=== PATIENT | female | born 1960 | race Caucasian/White ===

== ENCOUNTER → 2017-05-19 | Outpatient (CLI) | payer BC ==
[2012-04-24 12:35] VITALS: BP 123/63
[2017-05-19 11:08] LABS: BASOPHILS % (AUTO) 0.3 % (0.2-1.0); EOSINOPHILS # (AUTO) 0.1 x10^3/uL (0.0-0.2); EOSINOPHILS % (AUTO) 2.9 % (0.9-2.9); HEMATOCRIT 33.7 % (36.0-47.0); HEMOGLOBIN 11.5 g/dL (12.0-16.0); LYMPHOCYTES # (AUTO) 1.6 X10^3/uL (1.3-2.9); LYMPHOCYTES % (AUTO) 39.1 % (21.0-51.0); MEAN CORPUSCULAR HEMOGLOBIN 27.1 pg (27.0-34.0); MEAN CORPUSCULAR HGB CONC 34.1 g/dL (33.0-35.0); MEAN CORPUSCULAR VOLUME 79.6 fL (80.0-100.0); MEAN PLATELET VOLUME 7.9 fL (7.4-11.0); MONOCYTES # (AUTO) 0.5 x10^3/uL (0.3-0.8); MONOCYTES % (AUTO) 11.2 % (0.0-13.0); NEUTROPHILS % (AUTO) 46.5 % (42.0-75.0); PLATELET COUNT 164 X10^3/uL (150.0-450.0); RED BLOOD COUNT 4.24 X10^6/uL (3.5-5.4); RED CELL DISTRIBUTION WIDTH 13.9 % (11.6-16.5); WHITE BLOOD COUNT 4.2 X10^3/uL (3.6-10.0)
[2017-05-19 11:16] LABS: BLOOD UREA NITROGEN 12 mg/dL (7-18); CALCIUM 8.9 mg/dL (8.5-10.1); CARBON DIOXIDE 32.1 mmol/L (21-32); CHLORIDE 101 mmol/L (98-107); COR NA(FOR HYPERGLY) 142 mmol/L (136-145); CREATININE 0.73 mg/dL (0.55-1.02); SODIUM 141 mmol/L (136-145); eGFR BLACK RACES > 60 (>60); eGFR NON BLACK RACES > 60 (>60)
[2017-05-19 11:29] LABS: B-TYPE NATRIURETIC PEPTIDE 20.2 pg/mL (0-79)
[2017-05-19 11:56] LABS: MYCOPLASMA PNEUMONIAE IGM AB NEGATIVE (NEGATIVE)
== END ==
LOC: LAB 10:30
PROVIDERS: ATTEND Psychiatry & Neurology Neurology
DX: R05 Cough (principal); R06.02 Shortness of breath
CPT/HCPCS: 36415; 80048; 83880; 85025; 86738; 87070; 87205

== ENCOUNTER 2017-06-15 11:58 | Observation (INO) | payer BC ==
[2017-06-15 12:06] LABS: BASOPHILS % (AUTO) 0.5 % (0.2-1.0); EOSINOPHILS # (AUTO) 0.1 x10^3/uL (0.0-0.2); EOSINOPHILS % (AUTO) 2.2 % (0.9-2.9); HEMATOCRIT 31.3 % (36.0-47.0); HEMOGLOBIN 10.8 g/dL (12.0-16.0); LYMPHOCYTES # (AUTO) 1.7 X10^3/uL (1.3-2.9); LYMPHOCYTES % (AUTO) 38.1 % (21.0-51.0); MEAN CORPUSCULAR HEMOGLOBIN 27.5 pg (27.0-34.0); MEAN CORPUSCULAR HGB CONC 34.4 g/dL (33.0-35.0); MEAN CORPUSCULAR VOLUME 79.9 fL (80.0-100.0); MONOCYTES # (AUTO) 0.3 x10^3/uL (0.3-0.8); MONOCYTES % (AUTO) 6.8 % (0.0-13.0); NEUTROPHILS # (AUTO) 2.3 x10^3/uL (2.2-4.8); NEUTROPHILS % (AUTO) 52.4 % (42.0-75.0); PLATELET COUNT 151 X10^3/uL (150.0-450.0); RED BLOOD COUNT 3.91 X10^6/uL (3.5-5.4); RED CELL DISTRIBUTION WIDTH 14.1 % (11.6-16.5); WHITE BLOOD COUNT 4.4 X10^3/uL (3.6-10.0)
--- NOTE | 2017-06-15 12:12 | DR.GENAD ---
HPI - PCP Primary Care Physician: NLD - Complaint/Symptoms Chief Complaint Doctors Comments: Patient presented to the ED s/p feeling weak while at work today. She states that has been following BP with periodic adjustment between [facility] and [facility]. She has an extensive cardiac history with 29 stents and a carotid endarectomy left side. She states that she became diaphoretic but no chest pain or pressure. She was evaluated in the work place and lab submitted, she was evaluated by the erick prior to coming to the ED. She is alert in no distress. PMH - PMH Past Medical History: Angina, [place], Coronary Artery Disease, Hypertension Past Surgical History: Yes Surgical History: Angioplasty/Stents, , CABG/Valve Surgery - Family History Family Medical History: Diabetes Mellitus, Cancer, [place], Coronary Artery Disease, Sudden Cardiac , Hypertension - Social History Do you use any recreational Drugs:: No ROS - Review of Systems Eyes: No Symptoms Reported ENTM: No Symptoms Reported Respiratoy: No Symptoms Reported Cardiovascular: No Symptoms Reported Gastrointestinal/Abdominal: No Symptoms Reported Genitourinary: No Symptoms Reported Neurological: No Symptoms Reported Musculoskeletal: No Symptoms Reported Integumentary: No Symptoms Reported Hematologic/Lymphatic: No Symptoms Reported Endocrine: No Symptoms Reported Psychiatric: No Symptoms Reported PE - Vital Signs Vitals: Temperature 97.2 F Pulse Rate [Apical] 84 Pulse Rate 73 Respiratory Rate 20 Blood Pressure [Left Arm] 160/80 Blood Pressure 178/90 O2 Sat by Pulse Oximetry 100 - General Limitations: No Limitations General Appearance: Alert, In No Apparent Distress - Head Head Exam: Normal Inspection, Atraumatic - Eyes Eye exam: Normal Appearance, PERRL - ENT ENT Exam: Normal Exam External Ear Exam: Normal External Inspection TM/Canal Exam: Bilateral Normal Nose Exam: Normal Nose Exam Mouth Exam: Normal Inspection Throat Exam: Normal Inspection - Neck Neck Exam: Normal Inspection - Chest Chest Inspection: Normal Inspection - Respiratory Respiratory Exam: Normal Lung Sounds Bilat Respiratory Exam: Bilateral Clear to Auscultation - Cardiovascular Cardiovascular Exam: Regular Rate, Normal Rhythm - Abdominal Exam Abdominal Exam: Normal Inspection, Normal Bowel Sounds Abdominal Tenderness: negative: RUQ, RLQ, LUQ, LLQ, Epigastrium, Suprapubic, Diffuse, Mild, Moderate, Severe, Other - Extremities Extremities Exam: Normal Inspection, Full ROM - Back Back Exam: Normal Inspection, Full ROM - Neurologic Neurological Exam: Alert, Oriented X3, CN II-XII Intact - Psychiatric Psychiatric Exam: Normal Affect, Normal Mood - Skin Skin Exam: Warm, Dry, Intact Course - Reevaluation 1st: Improved - Consultation Called: 13:30 (1400 Dr Tatum agreed to admit for observation) ROR - Labs Reviewed Result Diagrams: 06/15/17 11:35 06/15/17 11:35 Laboratory: WBC 4.4 X10^3/uL (3.6-10.0) 06/15/17 11:35 RBC 3.91 X10^6/uL (3.5-5.4) 06/15/17 11:35 Hgb 10.8 g/dL (12.0-16.0) L 06/15/17 11:35 Hct 31.3 % (36.0-47.0) L 06/15/17 11:35 MCV 79.9 fL (80.0-100.0) L 06/15/17 11:35 MCH 27.5 pg (27.0-34.0) 06/15/17 11:35 MCHC 34.4 g/dL (33.0-35.0) 06/15/17 11:35 RDW 14.1 % (11.6-16.5) 06/15/17 11:35 Plt Count 151 X10^3/uL (150.0-450.0) 06/15/17 11:35 MPV 8.0 fL (7.4-11.0) 06/15/17 11:35 Neut % (Auto) 52.4 % (42.0-75.0) 06/15/17 11:35 Lymph % (Auto) 38.1 % (21.0-51.0) 06/15/17 11:35 [place] % (Auto) 6.8 % (0.0-13.0) 06/15/17 11:35 Eos % (Auto) 2.2 % (0.9-2.9) 06/15/17 11:35 Baso % (Auto) 0.5 % (0.2-1.0) 06/15/17 11:35 Neut # (Auto) 2.3 x10^3/uL (2.2-4.8) 06/15/17 11:35 Lymph # (Auto) 1.7 X10^3/uL (1.3-2.9) 06/15/17 11:35 [place] # (Auto) 0.3 x10^3/uL (0.3-0.8) 06/15/17 11:35 Eos # (Auto) 0.1 x10^3/uL (0.0-0.2) 06/15/17 11:35 Baso # (Auto) 0.0 X10^3/uL (0.0-0.1) 06/15/17 11:35 Absolute Nucleated RBC 0.0 /100WBC 06/15/17 11:35 Sodium 139 mmol/L (136-145) 06/15/17 11:35 Corrected Sodium 144 mmol/L (136-145) 06/15/17 11:35 Potassium 4.3 mmol/L (3.5-5.1) 06/15/17 11:35 Chloride 102 mmol/L (98-107) 06/15/17 11:35 Carbon Dioxide 26.8 mmol/L (21-32) 06/15/17 11:35 BUN 20 mg/dL (7-18) H 06/15/17 11:35 Creatinine 0.82 mg/dL (0.55-1.02) 06/15/17 11:35 Est GFR (MDRD) Af Amer > 60 (>60) 06/15/17 11:35 Est GFR (MDRD) Non-Af > 60 (>60) 06/15/17 11:35 Glucose 306 mg/dL (65-99) H 06/15/17 11:35 Calcium 8.1 mg/dL (8.5-10.1) L 06/15/17 11:35 Corrected Calcium 8.7 mg/dL (8.5-10.1) 06/15/17 11:35 Total Bilirubin 0.30 mg/dL (0.2-1.0) 06/15/17 11:35 AST 12 Units/L (15-37) L 06/15/17 11:35 ALT 22 Units/L (12-78) 06/15/17 11:35 Alkaline Phosphatase 78 Units/L (46-116) 06/15/17 11:35 Creatine Kinase 58 Units/L (26-192) 06/15/17 11:35 CK-MB (CK-2) < 1.0 ng/mL (0-4.0) 06/15/17 11:35 CK/CKMB % Calc 1.7 % (<4) 06/15/17 11:35 Troponin I < 0.02 ng/mL (0-1.5) 06/15/17 11:35 Total Protein 6.8 g/dL (6.4-8.2) 06/15/17 11:35 Albumin 3.3 g/dL (3.4-5.0) L 06/15/17 11:35 Globulin 3.5 g/dL (2.5-4.5) 06/15/17 11:35 Albumin/Globulin Ratio 0.9 Ratio (1.1-2.1) L 06/15/17 11:35 - Diagnosis Discharge Problem: Near syncope - Discharge Plan Condition: Stable - Follow ups/Referrals Follow ups/Referrals: NFD,None [Primary Care Provider] - 3 days - Instructions
[2017-06-15 12:27] LABS: BLOOD UREA NITROGEN 20 mg/dL (7-18); CALCIUM 8.1 mg/dL (8.5-10.1); CARBON DIOXIDE 26.8 mmol/L (21-32); CHLORIDE 102 mmol/L (98-107); COR NA(FOR HYPERGLY) 144 mmol/L (136-145); CREATININE 0.82 mg/dL (0.55-1.02); SODIUM 139 mmol/L (136-145); TROPONIN I < 0.02 ng/mL (0-1.5); eGFR BLACK RACES > 60 (>60); eGFR NON BLACK RACES > 60 (>60)
[2017-06-15 12:35] LABS: ALANINE AMINOTRANSFERASE 22 Units/L (12-78); ALBUMIN 3.3 g/dL (3.4-5.0); ALKALINE PHOSPHATASE 78 Units/L (46-116); ASPARTATE AMINO TRANSFERASE 12 Units/L (15-37); CKMB % 1.7 % (<4); COR CA(FOR HYPOALB) 8.7 mg/dL (8.5-10.1); CREATINE KINASE 58 Units/L (26-192); CREATINE KINASE MB < 1.0 ng/mL (0-4.0); TOTAL PROTEIN 6.8 g/dL (6.4-8.2)
--- NOTE | 2017-06-15 14:15 | RAD ---
Exam: Portable chest 06/15/2017 at 1:55 p.m. History: 56-year-old female with weakness. Comparison: Previous chest radiograph from 03/01/2015. Findings: Borderline cardiomegaly is seen. No significant vascular congestion however. Lungs are clear with no infiltrate or significant effusion on either side. Impression: Borderline cardiomegaly. However no acute superimposed abnormality is seen on this exam. Reported By:
[2017-06-15] MEDS ORDERED: NITROSTAT SL PRN (16:46)
[2017-06-15 18:09] LABS: CREATINE KINASE 50 Units/L (26-192); CREATINE KINASE MB < 1.0 ng/mL (0-4.0); TROPONIN I < 0.02 ng/mL (0-1.5)
[2017-06-15] MEDS ORDERED: LIPITOR TAB 40 MG PO SCH (21:00)
[2017-06-15] MEDS ORDERED: PATIENT'S HOME MEDICATION (Atorvastatin Calcium [Lipitor] 80 MG) PO SCH (21:00)
[2017-06-15] MEDS: LEVEMIR SC SCH (21:45)
[2017-06-15] MEDS: COZAAR PO SCH (21:45)
[2017-06-15] MEDS: LOPRESSOR TAB 25 MG PO SCH (21:46)
[2017-06-15] MEDS: PLETAL PO SCH (21:46)
[2017-06-15] MEDS: RANEXA PO SCH (21:47)
[2017-06-16 00:30] LABS: CKMB % 2.4 % (<4); CREATINE KINASE 42 Units/L (26-192); CREATINE KINASE MB < 1.0 ng/mL (0-4.0); TROPONIN I < 0.02 ng/mL (0-1.5)
[2017-06-16 07:07] LABS: BASOPHILS % (AUTO) 0.7 % (0.2-1.0); EOSINOPHILS # (AUTO) 0.1 x10^3/uL (0.0-0.2); EOSINOPHILS % (AUTO) 2.5 % (0.9-2.9); HEMATOCRIT 31.3 % (36.0-47.0); HEMOGLOBIN 10.7 g/dL (12.0-16.0); LYMPHOCYTES # (AUTO) 1.9 X10^3/uL (1.3-2.9); LYMPHOCYTES % (AUTO) 35.3 % (21.0-51.0); MEAN CORPUSCULAR HEMOGLOBIN 27.4 pg (27.0-34.0); MEAN CORPUSCULAR HGB CONC 34.3 g/dL (33.0-35.0); MEAN CORPUSCULAR VOLUME 79.8 fL (80.0-100.0); MEAN PLATELET VOLUME 8.1 fL (7.4-11.0); MONOCYTES # (AUTO) 0.4 x10^3/uL (0.3-0.8); NEUTROPHILS # (AUTO) 2.8 x10^3/uL (2.2-4.8); NEUTROPHILS % (AUTO) 53.5 % (42.0-75.0); PLATELET COUNT 138 X10^3/uL (150.0-450.0); RED BLOOD COUNT 3.92 X10^6/uL (3.5-5.4); RED CELL DISTRIBUTION WIDTH 14.1 % (11.6-16.5); WHITE BLOOD COUNT 5.3 X10^3/uL (3.6-10.0)
[2017-06-16 07:10] VITALS: BMI 29.8
[2017-06-16 07:18] LABS: ALANINE AMINOTRANSFERASE 19 Units/L (12-78); ALBUMIN 3.1 g/dL (3.4-5.0); ALKALINE PHOSPHATASE 69 Units/L (46-116); ASPARTATE AMINO TRANSFERASE 8 Units/L (15-37); BLOOD UREA NITROGEN 19 mg/dL (7-18); CALCIUM 8.1 mg/dL (8.5-10.1); CHLORIDE 102 mmol/L (98-107); CHOL/HDL RATIO 4.1 (0.0-5.0); CHOLESTEROL 192 mg/dL (0-200); COR CA(FOR HYPOALB) 8.8 mg/dL (8.5-10.1); COR NA(FOR HYPERGLY) 142 mmol/L (136-145); CREATININE 0.75 mg/dL (0.55-1.02); HDL CHOLESTEROL 47 mg/dL (40-60); SODIUM 140 mmol/L (136-145); TOTAL PROTEIN 6.5 g/dL (6.4-8.2); TRIGLYCERIDES 199 mg/dL (0-150); eGFR BLACK RACES > 60 (>60); eGFR NON BLACK RACES > 60 (>60)
[2017-06-16 07:34] VITALS: BP 175/94
[2017-06-16] MEDS ORDERED: PATIENT'S HOME MEDICATION (Aspirin 81 MG) PO SCH (09:00)
[2017-06-16] MEDS ORDERED: ASPIRIN 81 MG CHEWTAB PO SCH (09:00)
[2017-06-16] MEDS ORDERED: PLAVIX PO SCH (09:00)
[2017-06-16] MEDS ORDERED: PATIENT'S HOME MEDICATION (Clopidogrel Bisulfate [Plavix] 75 MG) PO SCH (09:00)
[2017-06-16] MEDS: PLETAL PO SCH (09:36)
[2017-06-16] MEDS: RANEXA PO SCH (09:36)
[2017-06-16] MEDS: COZAAR PO SCH (09:36)
[2017-06-16] MEDS: LEVEMIR SC SCH (09:37)
[2017-06-16] MEDS: LOPRESSOR TAB 25 MG PO SCH (09:37)
== END 2017-06-16 11:05 | disposition home or self-care (01) ==
LOC: ER 12:02 → OBS 14:18
PROVIDERS: ADMIT Internal Medicine; ATTEND Internal Medicine
DX: R55 Syncope and collapse (principal); R07.89 Other chest pain; I51.7 Cardiomegaly; I25.10 Atherosclerotic heart disease of native coronary artery without angina pectoris; R93.1 Abnormal findings on diagnostic imaging of heart and coronary circulation; D64.89 Other specified anemias; R73.09 Other abnormal glucose; R11.0 Nausea; Z95.5 Presence of coronary angioplasty implant and graft
CPT/HCPCS: 36415; 71045; 80053; 80061; 82550; 82553; 84484; 85025; 93005; 93010; 94760; 96365; 99283; 99284; A4216; 1956; G0378

== ENCOUNTER 2020-05-14 15:18 | Observation (INO) ==
[2020-05-14] MEDS ORDERED: ZOFRAN INJ 4 MG VIAL IVP PRN (16:47)
[2020-05-14] MEDS ORDERED: NS 1000 ML 1,000 ML ONE (17:20)
[2020-05-14] MEDS: NS 1000 ML 1,000 ML IV SCH (17:41)
[2020-05-14] MEDS ORDERED: HumuLIN R SC PRN (18:04)
[2020-05-14] MEDS ORDERED: MORPHINE SULFATE INJ 2 MG INJ IVP PRN (18:10)
[2020-05-14 18:53] LABS: LACTIC ACID 0.7 mmol/L (0.4-2.0)
[2020-05-14 19:40] VITALS: BMI 27.4
[2020-05-14] MEDS ORDERED: LOPRESSOR TAB 25 MG ONE (21:10)
[2020-05-14] MEDS: COZAAR PO SCH (21:43)
[2020-05-14] MEDS: LOPRESSOR TAB 25 MG PO SCH (21:43)
[2020-05-14] MEDS: RANEXA PO SCH (21:43)
[2020-05-14] MEDS: PLETAL PO SCH (21:44)
[2020-05-14 22:03] LABS: BILIRUBIN,URINE NEGATIVE (NEGATIVE); BLOOD/HEMOGLOBIN,URINE NEGATIVE (NEGATIVE); GLUCOSE, URINE 1+ (NEGATIVE); KETONES,URINE NEGATIVE (NEGATIVE); LEUKOCYTE ESTERASE ,URINE 1+ (NEGATIVE); NITRITES,URINE NEGATIVE (NEGATIVE); PROTEIN,URINE 1+ (NEGATIVE); UROBILINOGEN,URINE NORMAL (NORMAL)
[2020-05-14 22:18] LABS: APPEARANCE,URINE CLEAR (CLEAR); BACTERIA,URINE TRACE /HPF (NEGATIVE); COLOR,URINE YELLOW (YELLOW); MUCUS,URINE MODERATE /HPF (NEGATIVE); RBC,URINE NONE SEEN /HPF (0-3); SQUAMOUS EPITHELIAL CELL,UR FEW /HPF (NEGATIVE)
[2020-05-15] MEDS ORDERED: NS 1000 ML 1,000 ML ONE ×2 (01:04→08:56)
[2020-05-15] MEDS: NS 1000 ML 1,000 ML IV SCH ×3 (01:50→18:15)
[2020-05-15 05:08] LABS: BASOPHILS % (AUTO) 0.5 % (0.2-1.0); EOSINOPHILS # (AUTO) 0.1 x10^3/uL (0.0-0.2); EOSINOPHILS % (AUTO) 1.4 % (0.9-2.9); HEMATOCRIT 29.5 % (36.0-47.0); HEMOGLOBIN 9.8 g/dL (12.0-16.0); LYMPHOCYTES # (AUTO) 1.9 X10^3/uL (1.3-2.9); LYMPHOCYTES % (AUTO) 35.2 % (21.0-51.0); MEAN CORPUSCULAR HEMOGLOBIN 27.9 pg (27.0-34.0); MEAN CORPUSCULAR HGB CONC 33.2 g/dL (33.0-35.0); MEAN CORPUSCULAR VOLUME 84.1 fL (80.0-100.0); MEAN PLATELET VOLUME 7.1 fL (7.4-11.0); MONOCYTES # (AUTO) 0.5 x10^3/uL (0.3-0.8); MONOCYTES % (AUTO) 9.7 % (0.0-13.0); NEUTROPHILS # (AUTO) 2.9 x10^3/uL (2.2-4.8); NEUTROPHILS % (AUTO) 53.2 % (42.0-75.0); PLATELET COUNT 177 X10^3/uL (150.0-450.0); RED BLOOD COUNT 3.51 X10^6/uL (3.5-5.4); RED CELL DISTRIBUTION WIDTH 12.5 % (11.6-16.5); WHITE BLOOD COUNT 5.4 X10^3/uL (3.6-10.0)
[2020-05-15 05:21] LABS: ALANINE AMINOTRANSFERASE 10 Units/L (12-78); ALBUMIN 2.7 g/dL (3.4-5.0); ALKALINE PHOSPHATASE 49 Units/L (46-116); ASPARTATE AMINO TRANSFERASE 9 Units/L (15-37); BLOOD UREA NITROGEN 16 mg/dL (7-18); CALCIUM 8.5 mg/dL (8.5-10.1); CARBON DIOXIDE 30.2 mmol/L (21-32); CHLORIDE 106 mmol/L (98-107); COR CA(FOR HYPOALB) 9.5 mg/dL (8.5-10.1); COR NA(FOR HYPERGLY) 145 mmol/L (136-145); CREATININE 0.98 mg/dL (0.55-1.02); SODIUM 144 mmol/L (136-145); eGFR NON BLACK RACES > 60 (>60)
[2020-05-15] MEDS ORDERED: ASPIRIN 81 MG CHEWTAB ONE (08:30)
[2020-05-15] MEDS ORDERED: LEVAQUIN TAB 250 MG ONE (08:31)
[2020-05-15] MEDS ORDERED: PLAVIX ONE (08:31)
[2020-05-15] MEDS ORDERED: LOPRESSOR TAB 25 MG ONE (08:31)
[2020-05-15] MEDS ORDERED: LEVAQUIN TAB 500 MG ONE (08:32)
[2020-05-15 08:43] LABS: AMYLASE 35 Units/L (25-115); LIPASE 278 Units/L (73-393)
[2020-05-15] MEDS: PLAVIX PO SCH (08:45)
[2020-05-15] MEDS: LEVAQUIN TAB 750 MG PO SCH (08:46)
[2020-05-15] MEDS: ASPIRIN EC 81 MG PO SCH (08:46)
[2020-05-15] MEDS: LOPRESSOR TAB 25 MG PO SCH ×2 (08:47→21:10)
[2020-05-15] MEDS: HYDROCHLOROTHIAZIDE 25 MG TAB PO SCH (08:48)
[2020-05-15] MEDS: COZAAR PO SCH ×3 (08:48→21:10)
[2020-05-15] MEDS: PLETAL PO SCH ×2 (08:49→21:12)
[2020-05-15] MEDS: RANEXA PO SCH ×2 (08:49→21:13)
--- NOTE | 2020-05-15 08:51 | DR.H&P ---
H&P History & Physical for Day of: H&P Date: 05/14/20 Chief Complaint Chief Complaint: Nausea/Vomiting Abdominal pain Allergies Allergies Allergy/AdvReac Type Severity Reaction Status Date / Time No Known Drug Allergies Allergy Verified 06/15/17 15:20 History of Present Illness History of Present Illness: Pt is a 59 year old female past medical history CABG, HTN, DMT2, presenting with abdominal pain, nausea and vomiting that has been getting worse for the past 4-5 days. She reports decreased appetite and food intake due to persistent vomiting. She has been laying in bed unable to lift her head due to nausea. She is currently on Levofloxacin for UTI. On exam she does have epigastric and RUQ tenderness. Labs/imaging: Wbc 6, Hgb 11.7, Plt 265, Na 141, K 3.6, Cr 1.0, Glucose 127, AST 8, ALT 11, ALKP 61, LA 0.7, CRP 23, Troponin negative, EKG NSR, Lipase 259, UA 1+ leuks, wbc 3-5, trace bacteria, nitrite negative, COVID negative, CEA pending, KUB:1. [No acute cardiopulmonary disease.] Postsurgical chest status post sternotomy CABG surgery in coronary st ent placements 2. [No evidence for acute abdominal pathology identified. Will start patient on IVF, keep NPO excepts medications, IV zofran for nausea, continue levofloxacin course for UTI. Restart home medications. Pt w/ continued abdominal pain, will get CTAP for evaluation and U/S gallbladder. Continue to monitor and follow up labs/imaging in the morning. Past Medical History Past Medical History: Angina, Coronary Artery Disease, Diabetes, Hypertension and [place] Past Surgical History Surgical History: Angioplasty/Stents, CABG/Valve Surgery and [employer] Surgery Family History Family Medical History: Cancer, [place] and Coronary Artery Disease Social History Does patient currently use any type of tobacco product: No Have you used tobacco products in the last 12 months: No Type of Tobacco Use: None Does any household member use tobacco: No Alcohol Use: None Drug Use: None Medications Home Medications: No Known Drug Allergies Allergy (Verified 06/15/17 15:20) CONTINUE taking the following medications hydrochlorothiazide 25 mg PO DAILY 05/14/20 [History] levofloxacin 750 mg PO DAILY 05/14/20 [History] Labs Result Diagrams: 05/15/20 04:40 05/15/20 04:40 Labs: Laboratory WBC 5.4 X10^3/uL (3.6-10.0) 05/15/20 04:40 RBC 3.51 X10^6/uL (3.5-5.4) 05/15/20 04:40 Hgb 9.8 g/dL (12.0-16.0) L 05/15/20 04:40 Hct 29.5 % (36.0-47.0) L 05/15/20 04:40 MCV 84.1 fL (80.0-100.0) 05/15/20 04:40 MCH 27.9 pg (27.0-34.0) 05/15/20 04:40 MCHC 33.2 g/dL (33.0-35.0) 05/15/20 04:40 RDW 12.5 % (11.6-16.5) 05/15/20 04:40 Plt Count 177 X10^3/uL (150.0-450.0) 05/15/20 04:40 MPV 7.1 fL (7.4-11.0) L 05/15/20 04:40 Neut % (Auto) 53.2 % (42.0-75.0) 05/15/20 04:40 Lymph % (Auto) 35.2 % (21.0-51.0) 05/15/20 04:40 [place] % (Auto) 9.7 % (0.0-13.0) 05/15/20 04:40 Eos % (Auto) 1.4 % (0.9-2.9) 05/15/20 04:40 Baso % (Auto) 0.5 % (0.2-1.0) 05/15/20 04:40 Neut # (Auto) 2.9 x10^3/uL (2.2-4.8) 05/15/20 04:40 Lymph # (Auto) 1.9 X10^3/uL (1.3-2.9) 05/15/20 04:40 [place] # (Auto) 0.5 x10^3/uL (0.3-0.8) 05/15/20 04:40 Eos # (Auto) 0.1 x10^3/uL (0.0-0.2) 05/15/20 04:40 Baso # (Auto) 0.0 X10^3/uL (0.0-0.1) 05/15/20 04:40 Absolute Nucleated RBC 0.0 /100WBC 05/15/20 04:40 Sodium 144 mmol/L (136-145) 05/15/20 04:40 Corrected Sodium 145 mmol/L (136-145) 05/15/20 04:40 Potassium 3.5 mmol/L (3.5-5.1) 05/15/20 04:40 Chloride 106 mmol/L (98-107) 05/15/20 04:40 Carbon Dioxide 30.2 mmol/L (21-32) 05/15/20 04:40 BUN 16 mg/dL (7-18) 05/15/20 04:40 Creatinine 0.98 mg/dL (0.55-1.02) 05/15/20 04:40 Est GFR (MDRD) Af Amer > 60 (>60) 05/15/20 04:40 Est GFR (MDRD) Non-Af > 60 (>60) 05/15/20 04:40 Glucose 121 mg/dL (65-99) H 05/15/20 04:40 POC Glucose (mg/dL) 111 mg/dL (65-99) H 05/15/20 05:39 Lactic Acid 0.7 mmol/L (0.4-2.0) 05/14/20 18:10 Calcium 8.5 mg/dL (8.5-10.1) 05/15/20 04:40 Corrected Calcium 9.5 mg/dL (8.5-10.1) 05/15/20 04:40 Total Bilirubin 0.20 mg/dL (0.2-1.0) 05/15/20 04:40 AST 9 Units/L (15-37) L 05/15/20 04:40 ALT 10 Units/L (12-78) L 05/15/20 04:40 Alkaline Phosphatase 49 Units/L (46-116) 05/15/20 04:40 Troponin I < 0.02 ng/mL (0-1.5) 05/14/20 18:10 C-Reactive Protein 23.40 mg/L (0-3.0) H 05/14/20 18:10 Total Protein 6.0 g/dL (6.4-8.2) L 05/15/20 04:40 Albumin 2.7 g/dL (3.4-5.0) L 05/15/20 04:40 Globulin 3.3 g/dL (2.5-4.5) 05/15/20 04:40 Albumin/Globulin Ratio 0.8 Ratio (1.1-2.1) L 05/15/20 04:40 Amylase 35 Units/L (25-115) 05/15/20 04:40 Lipase 278 Units/L (73-393) 05/15/20 04:40 Specimen Type Clean catch urine 05/14/20 21:30 Urine Color Yellow (YELLOW) 05/14/20 21: Urine Appearance Clear (CLEAR) 05/14/20 21: Urine pH 6.0 (5.0 - 8.0) 05/14/20 21:30 Ur Specific [place] 1.020 (1.000-1.030) 05/14/20 21:30 Urine Protein 1+ (NEGATIVE) 05/14/20 21: Urine Glucose (UA) 1+ (NEGATIVE) 05/14/20 21: Urine Ketones Negative (NEGATIVE) 05/14/20 21: Urine Occult Blood Negative (NEGATIVE) 05/14/20 21: Urine Nitrite Negative (NEGATIVE) 05/14/20 21: Urine Bilirubin Negative (NEGATIVE) 05/14/20 21: Urine Urobilinogen Normal (NORMAL) 05/14/20 21:30 Ur Leukocyte Esterase 1+ (NEGATIVE) 05/14/20 21:30 Urine RBC None seen /HPF (0-3) 05/14/20 21:30 Urine WBC 3-5 /HPF (0-5) 05/14/20 21:30 Ur Squamous Epith Cells Few /HPF (NEGATIVE) 05/14/20 21:30 Urine Bacteria Trace /HPF (NEGATIVE) 05/14/20 21: Urine Mucus Moderate /HPF (NEGATIVE) 05/14/20 21:30 Ur Culture Indicated? No/not indicated 05/14/20 21:30 Review of Systems Constitutional: Weakness Eyes: No Symptoms Reported ENT: No Symptoms Reported Respiratory: No Symptoms Reported Cardiovascular: No Symptoms Reported Gastrointestinal: Nausea, Vomiting, Abdominal Pain and Constipation Genitourinary: No Symptoms Reported Musculoskeletal: No Symptoms Reported Skin: No Symptoms Reported Neurological: No Symptoms Reported Physical Exam Vital Signs: Temperature 98.2 F Pulse Rate [Left Radial] 75 Respiratory Rate 18 Blood Pressure [Left Arm] 145/70 O2 Sat by Pulse Oximetry 95 Oriented: Normal Eyes: Normal Ear: Normal Nose: Normal Throat: Normal Respiratory: Clear Throughout Cardiovascular: Normal : Normal Auscultation: Bowel Sounds: Normal Palpation: Normal Tenderness: RUQ and Epigastric Skin: Normal Musculoskeletal: Normal Psychiatric: Normal Mood Description: Calm and Appropriate Affect: Normal Speech Pattern: Clear and Appropriate Assessment/Plan (1) Acute abdominal pain: Status: Acute Plan: NPO except medications. IVF NS CTAP and U/S gallbladder for further evaluation. Antiemetics (2) Nausea & vomiting: Status: Acute (3) UTI (urinary tract infection): Status: Acute Plan: Levofloxacin Review H&P Reviewed: Yes Patient was examined?: Yes
--- NOTE | 2020-05-15 11:29 | PCM.PROG ---
Progress Note Progress Note for Day of Date of Exam: 05/15/20 Subjective Subjective: Pt is a 59 year old female past medical history CABG, HTN, DMT2, admitted for acute abdominal pain, nausea and vomiting. This morning she reports some improvement in her symptoms but is still having abdominal pain. Labs/imaging: Wbc 5.4, Hgb 9.8, Plt 177, Na 145, K 3.5, Cr 0.98, Glucose 111, CEA pending, KUB:1. [No acute cardiopulmonary disease.] Postsurgical chest status post sternotomy CABG surgery in coronary stent placements 2. [No evidence for acute abdominal pathology identified. Pt has CTAP and ultrasound of gallbladder scheduled. Continue IVF, keep NPO excepts medications until imaging results and then can consider advancing diet, IV zofran, IV protonix. Continue levofloxacin course for UTI. General surgery consulted, following recs. Continue to monitor and follow up labs/imaging in the morning. Past Medical Family Social History Past Med/Fam/Surg Hx: No changes since H&P Allergies: Allergies No Known Drug Allergies Allergy (Verified 06/15/17 15:20) Review of Systems ROS: No change since H&P Vital Signs and I&O's Vital Signs: Temperature 98.2 F Pulse Rate [Left Radial] 75 Respiratory Rate 18 Blood Pressure [Left Arm] 145/70 O2 Sat by Pulse Oximetry 95 Intake and Output: Intake & Output 05/12/20 05/13/20 05/14/20 05/15/20 23:59 23:59 23:59 23:59 Intake Total 700 / 700 750 / 750 Balance 700 / 700 750 / 750 Physical Exam Oriented: Normal Eyes: Normal Ear: Normal Nose: Normal Throat: Normal Respiratory: Normal Cardiovascular: Normal : Normal Auscultation: Bowel Sounds: Normal Palpation: Normal Tenderness: RUQ and Epigastric Skin: Normal Musculoskeletal: Normal Psychiatric: Normal Mood Description: Calm and Appropriate Affect: Normal Speech Pattern: Clear and Appropriate Laboratory and Diagnostics Result Diagrams: 05/15/20 04:40 05/15/20 04:40 Labs: Laboratory WBC 5.4 X10^3/uL (3.6-10.0) 05/15/20 04:40 RBC 3.51 X10^6/uL (3.5-5.4) 05/15/20 04:40 Hgb 9.8 g/dL (12.0-16.0) L 05/15/20 04:40 Hct 29.5 % (36.0-47.0) L 05/15/20 04:40 MCV 84.1 fL (80.0-100.0) 05/15/20 04:40 MCH 27.9 pg (27.0-34.0) 05/15/20 04:40 MCHC 33.2 g/dL (33.0-35.0) 05/15/20 04:40 RDW 12.5 % (11.6-16.5) 05/15/20 04:40 Plt Count 177 X10^3/uL (150.0-450.0) 05/15/20 04:40 MPV 7.1 fL (7.4-11.0) L 05/15/20 04:40 Neut % (Auto) 53.2 % (42.0-75.0) 05/15/20 04:40 Lymph % (Auto) 35.2 % (21.0-51.0) 05/15/20 04:40 [place] % (Auto) 9.7 % (0.0-13.0) 05/15/20 04:40 Eos % (Auto) 1.4 % (0.9-2.9) 05/15/20 04:40 Baso % (Auto) 0.5 % (0.2-1.0) 05/15/20 04:40 Neut # (Auto) 2.9 x10^3/uL (2.2-4.8) 05/15/20 04:40 Lymph # (Auto) 1.9 X10^3/uL (1.3-2.9) 05/15/20 04:40 [place] # (Auto) 0.5 x10^3/uL (0.3-0.8) 05/15/20 04:40 Eos # (Auto) 0.1 x10^3/uL (0.0-0.2) 05/15/20 04:40 Baso # (Auto) 0.0 X10^3/uL (0.0-0.1) 05/15/20 04:40 Absolute Nucleated RBC 0.0 /100WBC 05/15/20 04:40 Sodium 144 mmol/L (136-145) 05/15/20 04:40 Corrected Sodium 145 mmol/L (136-145) 05/15/20 04:40 Potassium 3.5 mmol/L (3.5-5.1) 05/15/20 04:40 Chloride 106 mmol/L (98-107) 05/15/20 04:40 Carbon Dioxide 30.2 mmol/L (21-32) 05/15/20 04:40 BUN 16 mg/dL (7-18) 05/15/20 04:40 Creatinine 0.98 mg/dL (0.55-1.02) 05/15/20 04:40 Est GFR (MDRD) Af Amer > 60 (>60) 05/15/20 04:40 Est GFR (MDRD) Non-Af > 60 (>60) 05/15/20 04:40 Glucose 121 mg/dL (65-99) H 05/15/20 04:40 POC Glucose (mg/dL) 111 mg/dL (65-99) H 05/15/20 05:39 Lactic Acid 0.7 mmol/L (0.4-2.0) 05/14/20 18:10 Calcium 8.5 mg/dL (8.5-10.1) 05/15/20 04:40 Corrected Calcium 9.5 mg/dL (8.5-10.1) 05/15/20 04:40 Total Bilirubin 0.20 mg/dL (0.2-1.0) 05/15/20 04:40 AST 9 Units/L (15-37) L 05/15/20 04:40 ALT 10 Units/L (12-78) L 05/15/20 04:40 Alkaline Phosphatase 49 Units/L (46-116) 05/15/20 04:40 Troponin I < 0.02 ng/mL (0-1.5) 05/14/20 18:10 C-Reactive Protein 23.40 mg/L (0-3.0) H 05/14/20 18:10 Total Protein 6.0 g/dL (6.4-8.2) L 05/15/20 04:40 Albumin 2.7 g/dL (3.4-5.0) L 05/15/20 04:40 Globulin 3.3 g/dL (2.5-4.5) 05/15/20 04:40 Albumin/Globulin Ratio 0.8 Ratio (1.1-2.1) L 05/15/20 04:40 Amylase 35 Units/L (25-115) 05/15/20 04:40 Lipase 278 Units/L (73-393) 05/15/20 04:40 Specimen Type Clean catch urine 05/14/20 21:30 Urine Color Yellow (YELLOW) 05/14/20 21: Urine Appearance Clear (CLEAR) 05/14/20 21: Urine pH 6.0 (5.0 - 8.0) 05/14/20 21:30 Ur Specific [place] 1.020 (1.000-1.030) 05/14/20 21: Urine Protein 1+ (NEGATIVE) 05/14/20 21: Urine Glucose (UA) 1+ (NEGATIVE) 05/14/20 21: Urine Ketones Negative (NEGATIVE) 05/14/20 21: Urine Occult Blood Negative (NEGATIVE) 05/14/20 21: Urine Nitrite Negative (NEGATIVE) 05/14/20 21: Urine Bilirubin Negative (NEGATIVE) 05/14/20 21:30 Urine Urobilinogen Normal (NORMAL) 05/14/20 21:30 Ur Leukocyte Esterase 1+ (NEGATIVE) 05/14/20 21:30 Urine RBC None seen /HPF (0-3) 05/14/20 21: Urine WBC 3-5 /HPF (0-5) 05/14/20 21:30 Ur Squamous Epith Cells Few /HPF (NEGATIVE) 05/14/20 21:30 Urine Bacteria Trace /HPF (NEGATIVE) 05/14/20 21: Urine Mucus Moderate /HPF (NEGATIVE) 05/14/20 21:30 Ur Culture Indicated? No/not indicated 05/14/20 21:30 Plan (1) Acute abdominal pain: Status: Acute Plan: NPO except medications. IVF NS CTAP and U/S gallbladder for further evaluation. Antiemetics (2) Nausea & vomiting: Status: Acute (3) UTI (urinary tract infection): Status: Acute Plan: Levofloxacin
--- NOTE | 2020-05-15 12:48 | US ---
HISTORYRUQ PAIN Clinical Notes:.brCAD, DM, HTN, [place], ANGIOPLASTY STENTS, CABG, TUBAL ; BSA=1.95.brBSAType=OCCIDENTALSTUDYGALL BLADDERCOMPARISONNoneTECHNIQUEEighty-four images made by the space operations officer. Urias scale and color-flow d oppler images of the right upper quadrant were obtained.FINDINGSThe liver has normal echogenicity and size. No focal mass or intrahepatic biliary ductal dilatation is present. The intrahepatic inferior vena cava was imaged.The portal vein is patent with blood flow toward the liver. The visualized hepat ic veins are patent with blood flow toward the right atrium.The pancreatic head and body are unremark able. The pancreatic tail is largely obscured by overlying bowel gas.The gallbladder is normally dist ended with no stones, wall thickening, or pericholecystic fluid. No extrahepatic biliary duct dilatat ion; common duct is normal.The right kidney is normal in size and echogenicity. No hydronephrosis. Ri ght resistive index measures 0.6.IMPRESSION1. No significant abnormalityElectronically signed by: Alden Diamond (May 15, 2020 12:46:34)
[2020-05-15] MEDS: PROTONIX INJ 40 MG VIAL IVP SCH (13:00)
[2020-05-15] MEDS ORDERED: NS 100 ML IV 100 ML IV ONE (14:34)
--- NOTE | 2020-05-15 15:34 | CT ---
ABDOMEN/PELVIS WITH CONHISTORY: ABD PAINComparison:Same-day ultrasoundTechnique:Multiple non contrast axial images of the abdomen and pelvis were obtained from the lung bases to the pubic symphysis. Oral contrast was given . Dose reduction techniques including Automated Exposure Control (AEC) and adjustment of mA and kV were utlized.Findings:The sensitivity for focal lesion detection within the solid abdominal viscera is diminished without the use of IV contrast.The heart is normal in size. There is no pericardial effusion. Lung bases are clear without focal consolidation, pleural effusion or pneumothorax.Liver is within normal limits. Spleen mildly enlarged. No focal lesions. No ductal dilitation. Gallbladder is present. No calcified gallstones or gallbladder wall thickening. The pancreas is unremarkable. Adrenal glands are normal. Kidneys are without hydronephrosis or nephrolithiasis.No bowel obstruction or inflammation. Normal appendix. No abnormal appearing mesenteric or retroperitoneal lymph nodes. . No free fluid or fluid collections.The bladder is normal in appearance. Uterus present. No free fluid or abnormal pelvic lymph nodes.No aggressive osseous lesions.IMPRESSION:1. No source of acute abdominal pain identified on this examination.Electronically signed by: CHAD YE (May 15, 2020 15:32:37)
--- NOTE | 2020-05-15 16:21 | DR.PROGNOT ---
Hospital Progress Notes - Progress Note for Day of: Progress Note Date: 05/15/20 - Chief Complaint Chief Complaint: less abdominal pain . mild nausea , no vomiting . GB US was read as normal . CBC, CMP, Amylase , Lipase normal .. afebrile . - Past Medical Family Social History Past Med/Fam/Surg Hx: No changes since H&P Allergies: Allergies No Known Drug Allergies Allergy (Verified 06/15/17 15:20) - Review Of Systems ROS: No change since H&P - Vital Signs Vital Signs: Temperature 98.2 F Pulse Rate [Left Radial] 75 Pulse Rate 61 Respiratory Rate 18 Blood Pressure [Left Arm] 145/70 Blood Pressure 182/84 O2 Sat by Pulse Oximetry 94 - Physical Exam Oriented: Normal Eyes: Normal Ear: Normal Nose: Normal Throat: Normal Respiratory: Normal Cardiovascular: Normal : Normal GI:Auscultation: Normal GI:Palpation: Normal GI: Tenderness: RUQ (soft,abdomen with moderate epigastric and RUQ tenderness . mild rebound . BS+), Epigastric Skin: Normal Musculoskeletal: Normal Psychiatric: Normal Mood Description: Calm, Appropriate Affect: Normal Speech Pattern: Clear, Appropriate - Laboratory and Diagnostics Result Diagrams: 05/15/20 04:40 05/15/20 04:40 Labs: Laboratory WBC 5.4 X10^3/uL (3.6-10.0) 05/15/20 04:40 RBC 3.51 X10^6/uL (3.5-5.4) 05/15/20 04:40 Hgb 9.8 g/dL (12.0-16.0) L 05/15/20 04:40 Hct 29.5 % (36.0-47.0) L 05/15/20 04:40 MCV 84.1 fL (80.0-100.0) 05/15/20 04:40 MCH 27.9 pg (27.0-34.0) 05/15/20 04:40 MCHC 33.2 g/dL (33.0-35.0) 05/15/20 04:40 RDW 12.5 % (11.6-16.5) 05/15/20 04:40 Plt Count 177 X10^3/uL (150.0-450.0) 05/15/20 04:40 MPV 7.1 fL (7.4-11.0) L 05/15/20 04:40 Neut % (Auto) 53.2 % (42.0-75.0) 05/15/20 04:40 Lymph % (Auto) 35.2 % (21.0-51.0) 05/15/20 04:40 [place] % (Auto) 9.7 % (0.0-13.0) 05/15/20 04:40 Eos % (Auto) 1.4 % (0.9-2.9) 05/15/20 04:40 Baso % (Auto) 0.5 % (0.2-1.0) 05/15/20 04:40 Neut # (Auto) 2.9 x10^3/uL (2.2-4.8) 05/15/20 04:40 Lymph # (Auto) 1.9 X10^3/uL (1.3-2.9) 05/15/20 04:40 [place] # (Auto) 0.5 x10^3/uL (0.3-0.8) 05/15/20 04:40 Eos # (Auto) 0.1 x10^3/uL (0.0-0.2) 05/15/20 04:40 Baso # (Auto) 0.0 X10^3/uL (0.0-0.1) 05/15/20 04:40 Absolute Nucleated RBC 0.0 /100WBC 05/15/20 04:40 Sodium 144 mmol/L (136-145) 05/15/20 04:40 Corrected Sodium 145 mmol/L (136-145) 05/15/20 04:40 Potassium 3.5 mmol/L (3.5-5.1) 05/15/20 04:40 Chloride 106 mmol/L (98-107) 05/15/20 04:40 Carbon Dioxide 30.2 mmol/L (21-32) 05/15/20 04:40 BUN 16 mg/dL (7-18) 05/15/20 04:40 Creatinine 0.98 mg/dL (0.55-1.02) 05/15/20 04:40 Est GFR (MDRD) Af Amer > 60 (>60) 05/15/20 04:40 Est GFR (MDRD) Non-Af > 60 (>60) 05/15/20 04:40 Glucose 121 mg/dL (65-99) H 05/15/20 04:40 POC Glucose (mg/dL) 80 mg/dL (65-99) 05/15/20 15:57 Lactic Acid 0.7 mmol/L (0.4-2.0) 05/14/20 18:10 Calcium 8.5 mg/dL (8.5-10.1) 05/15/20 04:40 Corrected Calcium 9.5 mg/dL (8.5-10.1) 05/15/20 04:40 Magnesium 2.2 mg/dL (1.7-2.9) 05/15/20 04:40 Total Bilirubin 0.20 mg/dL (0.2-1.0) 05/15/20 04:40 AST 9 Units/L (15-37) L 05/15/20 04:40 ALT 10 Units/L (12-78) L 05/15/20 04:40 Alkaline Phosphatase 49 Units/L (46-116) 05/15/20 04:40 Troponin I < 0.02 ng/mL (0-1.5) 05/14/20 18:10 C-Reactive Protein 23.40 mg/L (0-3.0) H 05/14/20 18:10 Total Protein 6.0 g/dL (6.4-8.2) L 05/15/20 04:40 Albumin 2.7 g/dL (3.4-5.0) L 05/15/20 04:40 Globulin 3.3 g/dL (2.5-4.5) 05/15/20 04:40 Albumin/Globulin Ratio 0.8 Ratio (1.1-2.1) L 05/15/20 04:40 Amylase 35 Units/L (25-115) 05/15/20 04:40 Lipase 278 Units/L (73-393) 05/15/20 04:40 Specimen Type Clean catch urine 05/14/20 21:30 Urine Color Yellow (YELLOW) 05/14/20 21:30 Urine Appearance Clear (CLEAR) 05/14/20 21:30 Urine pH 6.0 (5.0 - 8.0) 05/14/20 21:30 Ur Specific [place] 1.020 (1.000-1.030) 05/14/20 21:30 Urine Protein 1+ (NEGATIVE) 05/14/20 21:30 Urine Glucose (UA) 1+ (NEGATIVE) 05/14/20 21: Urine Ketones Negative (NEGATIVE) 05/14/20: Urine Occult Blood Negative (NEGATIVE) 05/14/20 21: Urine Nitrite Negative (NEGATIVE) 05/14/20: Urine Bilirubin Negative (NEGATIVE) 05/14/20 21: Urine Urobilinogen Normal (NORMAL) 05/14/20: Ur Leukocyte Esterase 1+ (NEGATIVE) 05/14/20 21: Urine RBC None seen /HPF (0-3) 05/14/20: Urine WBC 3-5 /HPF (0-5) 05/14/20 21: Ur Squamous Epith Cells Few /HPF (NEGATIVE) 05/14/20: Urine Bacteria Trace /HPF (NEGATIVE) 05/14/20: Urine Mucus Moderate /HPF (NEGATIVE) 05/14/20:30 Ur Culture Indicated? No/not indicated 05/14/20:30 - Assessment and Plan 1: abdominal pain , PUD , cholecystitis . awaiting CT findings . to advance diet . if all normal will arrange for EGD as OP .
[2020-05-16] MEDS: NS 1000 ML 1,000 ML IV SCH (03:08)
[2020-05-16 06:05] LABS: BASOPHILS % (AUTO) 0.4 % (0.2-1.0); EOSINOPHILS # (AUTO) 0.1 x10^3/uL (0.0-0.2); EOSINOPHILS % (AUTO) 1.3 % (0.9-2.9); HEMATOCRIT 28.8 % (36.0-47.0); HEMOGLOBIN 9.8 g/dL (12.0-16.0); LYMPHOCYTES # (AUTO) 1.7 X10^3/uL (1.3-2.9); LYMPHOCYTES % (AUTO) 27.3 % (21.0-51.0); MEAN CORPUSCULAR HEMOGLOBIN 28.2 pg (27.0-34.0); MEAN CORPUSCULAR HGB CONC 34.1 g/dL (33.0-35.0); MEAN CORPUSCULAR VOLUME 82.8 fL (80.0-100.0); MEAN PLATELET VOLUME 7.1 fL (7.4-11.0); MONOCYTES # (AUTO) 0.5 x10^3/uL (0.3-0.8); MONOCYTES % (AUTO) 8.1 % (0.0-13.0); NEUTROPHILS # (AUTO) 3.9 x10^3/uL (2.2-4.8); NEUTROPHILS % (AUTO) 62.9 % (42.0-75.0); PLATELET COUNT 170 X10^3/uL (150.0-450.0); RED BLOOD COUNT 3.48 X10^6/uL (3.5-5.4); RED CELL DISTRIBUTION WIDTH 12.3 % (11.6-16.5); WHITE BLOOD COUNT 6.2 X10^3/uL (3.6-10.0)
[2020-05-16 06:35] LABS: ALANINE AMINOTRANSFERASE 16 Units/L (12-78); ALBUMIN 2.6 g/dL (3.4-5.0); ALKALINE PHOSPHATASE 55 Units/L (46-116); ASPARTATE AMINO TRANSFERASE 7 Units/L (15-37); BLOOD UREA NITROGEN 11 mg/dL (7-18); CALCIUM 7.8 mg/dL (8.5-10.1); CHLORIDE 106 mmol/L (98-107); COR CA(FOR HYPOALB) 8.9 mg/dL (8.5-10.1); COR NA(FOR HYPERGLY) 143 mmol/L (136-145); CREATININE 0.88 mg/dL (0.55-1.02); SODIUM 142 mmol/L (136-145); TOTAL PROTEIN 5.8 g/dL (6.4-8.2); eGFR NON BLACK RACES > 60 (>60)
[2020-05-16 08:08] VITALS: BP 129/62
[2020-05-16] MEDS: ASPIRIN EC 81 MG PO SCH (08:32)
[2020-05-16] MEDS: RANEXA PO SCH (08:32)
[2020-05-16] MEDS: PLETAL PO SCH (08:32)
[2020-05-16] MEDS: PROTONIX INJ 40 MG VIAL IVP SCH (08:33)
[2020-05-16] MEDS: PLAVIX PO SCH (08:33)
[2020-05-16] MEDS: COZAAR PO SCH (08:33)
[2020-05-16] MEDS: LEVAQUIN TAB 750 MG PO SCH (08:34)
[2020-05-16] MEDS: LOPRESSOR TAB 25 MG PO SCH (08:34)
[2020-05-16] MEDS: HYDROCHLOROTHIAZIDE 25 MG TAB PO SCH (08:34)
--- NOTE | 2020-05-16 09:49 | W.DIS.FURT ---
Summary of Discharge Discharge Summary of Date Date of Exam: 05/16/20 Admission Date Date of Admission: 05/14/20 Admission Diagnosis Hospital Course: Pt is a 59 year old female past medical history CABG, HTN, DMT2, admitted for acute abdominal pain, nausea and vomiting. Her treatment course includes IVF, IV zofran, IV protonix. Pt also had UTI that she was already on antibiotics for and was continued to complete course for her UTI. Pt was kept NPO for further imaging. Surgery was consulted for further evaluation. Labs/imaging: Wbc 6.2, Hgb 9.8, Plt 170, Na 143, K 3.3, Cr 0.88, Glucose 155, CTAP: 1. No source of acute abdominal pain identified on this examination. Gallbladder U/S:1.No significant abnormality. Workup negative for any acute causes of symptoms. Pt started feeling better and significantly improvement in symptoms. Diet was gradually advanced. Surgery recommends outpatient follow up for possible EGD if necessary. Otherwise patient discharged in stable condition with instructions to follow up with pcp in 3-5 days. Vital Signs: Vital Signs (72 hours) 05/14/20 19:47 05/14/20 22:40 05/15/20 00:00 Temperature 97.9 F Pulse Rate Pulse Rate [Left Radial] 68 71 Respiratory Rate 18 18 18 Blood Pressure Blood Pressure [Left Arm] 171/80 177/86 148/78 O2 Sat by Pulse Oximetry 99 05/15/20 04:00 05/15/20 07:36 05/15/20 07:48 Temperature 98.2 F Pulse Rate 71 83 Pulse Rate [Left Radial] 75 Respiratory Rate 18 Blood Pressure 143/67 Blood Pressure [Left Arm] 145/70 O2 Sat by Pulse Oximetry 95 96 98 05/15/20 08:00 05/15/20 08:15 05/15/20 08:30 Temperature Pulse Rate 80 73 67 Pulse Rate [Left Radial] Respiratory Rate Blood Pressure 139/83 159/81 Blood Pressure [Left Arm] O2 Sat by Pulse Oximetry 98 97 99 05/15/20 08:45 05/15/20 09:00 05/15/20 09:15 Temperature Pulse Rate 65 60 60 Pulse Rate [Left Radial] Respiratory Rate Blood Pressure 153/78 Blood Pressure [Left Arm] O2 Sat by Pulse Oximetry 94 L 98 99 05/15/20 09:30 05/15/20 09:31 05/15/20 09:45 Temperature Pulse Rate 61 62 61 Pulse Rate [Left Radial] Respiratory Rate Blood Pressure 182/84 Blood Pressure [Left Arm] O2 Sat by Pulse Oximetry 99 99 94 L 05/15/20 16:00 05/15/20 20:00 05/16/20 00:00 Temperature 98.2 F 97.6 F 98.0 F Pulse Rate Pulse Rate [Left Radial] 71 93 H 84 Respiratory Rate 20 20 20 Blood Pressure Blood Pressure [Left Arm] 175/84 142/75 111/64 O2 Sat by Pulse Oximetry 99 100 93 L 05/16/20 04:00 05/16/20 08:00 Temperature 98.3 F 97.8 F Pulse Rate Pulse Rate [Left Radial] 85 72 Respiratory Rate 20 20 Blood Pressure Blood Pressure [Left Arm] 124/60 129/62 O2 Sat by Pulse Oximetry 93 L 93 L Labs: Laboratory Last Values WBC 6.2 X10^3/uL (3.6-10.0) 05/16/20 05:39 RBC 3.48 X10^6/uL (3.5-5.4) L 05/16/20 05:39 Hgb 9.8 g/dL (12.0-16.0) L 05/16/20 05:39 Hct 28.8 % (36.0-47.0) L 05/16/20 05:39 MCV 82.8 fL (80.0-100.0) 05/16/20 05:39 MCH 28.2 pg (27.0-34.0) 05/16/20 05:39 MCHC 34.1 g/dL (33.0-35.0) 05/16/20 05:39 RDW 12.3 % (11.6-16.5) 05/16/20 05:39 Plt Count 170 X10^3/uL (150.0-450.0) 05/16/20 05:39 MPV 7.1 fL (7.4-11.0) L 05/16/20 05:39 Neut % (Auto) 62.9 % (42.0-75.0) 05/16/20 05:39 Lymph % (Auto) 27.3 % (21.0-51.0) 05/16/20 05:39 [place] % (Auto) 8.1 % (0.0-13.0) 05/16/20 05:39 Eos % (Auto) 1.3 % (0.9-2.9) 05/16/20 05:39 Baso % (Auto) 0.4 % (0.2-1.0) 05/16/20 05:39 Neut # (Auto) 3.9 x10^3/uL (2.2-4.8) 05/16/20 05:39 Lymph # (Auto) 1.7 X10^3/uL (1.3-2.9) 05/16/20 05:39 [place] # (Auto) 0.5 x10^3/uL (0.3-0.8) 05/16/20 05:39 Eos # (Auto) 0.1 x10^3/uL (0.0-0.2) 05/16/20 05:39 Baso # (Auto) 0.0 X10^3/uL (0.0-0.1) 05/16/20 05:39 Absolute Nucleated RBC 0.0 /100WBC 05/16/20 05:39 Sodium 142 mmol/L (136-145) 05/16/20 05:39 Corrected Sodium 143 mmol/L (136-145) 05/16/20 05:39 Potassium 3.3 mmol/L (3.5-5.1) L 05/16/20 05:39 Chloride 106 mmol/L (98-107) 05/16/20 05:39 Carbon Dioxide 27.0 mmol/L (21-32) 05/16/20 05:39 BUN 11 mg/dL (7-18) 05/16/20 05:39 Creatinine 0.88 mg/dL (0.55-1.02) 05/16/20 05:39 Est GFR (MDRD) Af Amer > 60 (>60) 05/16/20 05:39 Est GFR (MDRD) Non-Af > 60 (>60) 05/16/20 05:39 Glucose 155 mg/dL (65-99) H 05/16/20 05:39 POC Glucose (mg/dL) 147 mg/dL (65-99) H 05/16/20 05:38 Lactic Acid 0.7 mmol/L (0.4-2.0) 05/14/20 18:10 Calcium 7.8 mg/dL (8.5-10.1) L 05/16/20 05:39 Corrected Calcium 8.9 mg/dL (8.5-10.1) 05/16/20 05:39 Magnesium 2.0 mg/dL (1.7-2.9) 05/16/20 05:39 Total Bilirubin 0.20 mg/dL (0.2-1.0) 05/16/20 05:39 AST 7 Units/L (15-37) L 05/16/20 05:39 ALT 16 Units/L (12-78) 05/16/20 05:39 Alkaline Phosphatase 55 Units/L (46-116) 05/16/20 05:39 Troponin I < 0.02 ng/mL (0-1.5) 05/14/20 18:10 C-Reactive Protein 23.40 mg/L (0-3.0) H 05/14/20 18:10 Total Protein 5.8 g/dL (6.4-8.2) L 05/16/20 05:39 Albumin 2.6 g/dL (3.4-5.0) L 05/16/20 05:39 Globulin 3.2 g/dL (2.5-4.5) 05/16/20 05:39 Albumin/Globulin Ratio 0.8 Ratio (1.1-2.1) L 05/16/20 05:39 Amylase 35 Units/L (25-115) 05/15/20 04:40 Lipase 278 Units/L (73-393) 05/15/20 04:40 Specimen Type Clean catch urine 05/14/20 21:30 Urine Color Yellow (YELLOW) 05/14/20 21:30 Urine Appearance Clear (CLEAR) 05/14/20 21:30 Urine pH 6.0 (5.0 - 8.0) 05/14/20 21:30 Ur Specific [place] 1.020 (1.000-1.030) 05/14/20 21:30 Urine Protein 1+ (NEGATIVE) 05/14/20 21:30 Urine Glucose (UA) 1+ (NEGATIVE) 05/14/20 21:30 Urine Ketones Negative (NEGATIVE) 05/14/20 21:30 Urine Occult Blood Negative (NEGATIVE) 05/14/20 21:30 Urine Nitrite Negative (NEGATIVE) 05/14/20 21:30 Urine Bilirubin Negative (NEGATIVE) 05/14/20 21:30 Urine Urobilinogen Normal (NORMAL) 05/14/20 21:30 Ur Leukocyte Esterase 1+ (NEGATIVE) 05/14/20 21:30 Urine RBC None seen /HPF (0-3) 05/14/20 21:30 Urine WBC 3-5 /HPF (0-5) 05/14/20 21:30 Ur Squamous Epith Cells Few /HPF (NEGATIVE) 05/14/20 21:30 Urine Bacteria Trace /HPF (NEGATIVE) 05/14/20 21:30 Urine Mucus Moderate /HPF (NEGATIVE) 05/14/20 21:30 Ur Culture Indicated? No/not indicated 05/14/20 21:30 Reason For Visit: INTRACTABLE NAUSEA AND VOMITING,DEHYDRATION, Discharge Date Discharge Date: 05/16/20 Discharge Diagnosis All Active Problems (Updated 05/15/20 @ 11:25 by Aubrey Luciano) UTI (urinary tract infection) (Acute) Nausea & vomiting (Acute) Acute abdominal pain (Acute) Near syncope (Acute) Bone injury (Acute) Fall (Acute) Fracture of toe (Acute) Laceration of toe of left foot (Acute) Plan of Treatment: Continue with present treatment and follow up plan. Pt is to keep follow up appointment as instructed and take medications as ordered. Discharge Medications Discharge Medications: No Known Drug Allergies Allergy (Verified 06/15/17 15:20) CONTINUE taking the following medications hydrochlorothiazide 25 mg PO DAILY 05/14/20 [History] New Prescriptions ondansetron 4 mg PO Q6H PRN #30 tab 05/16/20 [Rx] Follow up and Referral Follow Up: 1 Week Discharge Disposition Discharge Disposition: Home Discharge Condition: Stable Discharge Plan Discharge Plan Hospital Course: Pt is a 59 year old female past medical history CABG, HTN, DMT2, admitted for acute abdominal pain, nausea and vomiting. Her treatment course includes IVF, IV zofran, IV protonix. Pt also had UTI that she was already on antibiotics for and was continued to complete course for her UTI. Pt was kept NPO for further imaging. Surgery was consulted for further evaluation. Labs/imaging: Wbc 6.2, Hgb 9.8, Plt 170, Na 143, K 3.3, Cr 0.88, Glucose 155, CTAP: 1. No source of acute abdominal pain identified on this examination. Gallbladder U/S:1.No significant abnormality. Workup negative for any acute causes of symptoms. Pt started feeling better and significantly improvement in symptoms. Diet was gradually advanced. Surgery recommends outpatient follow up for possible EGD if necessary. Otherwise patient discharged in stable condition with instructions to follow up with pcp in 3-5 days. Patient Disposition: 01 HOME, SELF-CARE Condition: Stable Health Concerns: Post Hospitalization: new medications and changes needed to prevent readmission or further decline. Pt educated and given instructions on all concerns. Care Plan Goals: Problem: Pain/Alteration in Comfort Goal: Improve/ Resolve Pain; Achieve Pain Tolerance Instructions: Take pain medications as prescribed. Contact your primary care provider if your pain is unrelieved or worsens. Follow up with primary care provider as directed. Plan of Treatment: Continue with present treatment and follow up plan. Pt is to keep follow up appointment as instructed and take medications as ordered. Prescription drug monitoring program results: PDMP reviewed and no concerns identified Prescriptions: New ondansetron 4 mg tablet,disintegrating 4 mg PO Q6H PRNQty: 30 RF: 0 Continued Clopidogrel Bisulfate [Plavix] 75 MG Tab 75 mg PO DAILY RF: 0 losartan 50 MG tablet 1 tab PO BID RF: 0 cilostazol 100 MG tablet 1 tab PO BID RF: 0 metoprolol tartrate 25 MG tablet 1 tab PO BID RF: 0 ranolazine [Ranexa] 500 MG tablet extended release 12 hr 1 tab PO BID RF: 0 hydrochlorothiazide 25 mg tablet 25 mg PO DAILY RF: 0 aspirin [Aspirin Low Dose] 81 mg Tablet,Delayed Release (Dr/Ec) 81 mg PO QDAY RF: 0 Discontinued levofloxacin 750 mg tablet 750 mg PO DAILY RF: 0 Orders to Discharge Patient Discharge Orders: Discharge (Routine); Ordered 05/16/20 Ordered By: Aubrey Luciano Follow ups/Referrals Follow ups/Referrals: Aubrey Luciano [Primary Care Provider] - 1 WEEK Instructions Instructions: Flank Pain, Adult, [id number], Abdominal Pain, Adult, [id number], Type 2 Diabetes Mellitus, Self Care, Adult, [id number], Nausea and Vomiting, Adult, [id number], Urinary Tract Infection, Adult, [id number], Hypertension, [id number] Stand Alone Forms: Excuse From Work or School, Precautions for COVID19, Patient Portal, Social Distancing
== END 2020-05-16 11:55 | disposition home or self-care (01) ==
LOC: OBS → MED/SURG 05-15 11:59
PROVIDERS: ADMIT Family Medicine; ATTEND Family Medicine
DX: E11.65 Type 2 diabetes mellitus with hyperglycemia; E86.0 Dehydration; I10 Essential (primary) hypertension; I25.10 Atherosclerotic heart disease of native coronary artery without angina pectoris; R79.82 Elevated C-reactive protein (CRP); Z20.822 Contact with and (suspected) exposure to COVID-19; R11.2 Nausea with vomiting, unspecified; R10.84 Generalized abdominal pain; N39.0 Urinary tract infection, site not specified